=== PATIENT | female | born 1990 | race Caucasian/White ===

== ENCOUNTER 2021-09-03 23:03 | Emergency (ER) | payer OTHER ==
[~2021-09-03] VITALS: Ht 162.6 cm; Wt 76.1 kg
[2021-09-04] MEDS ORDERED: IBUPROFEN 600MG TABLET PO ONE (01:00)
[2021-09-04] MEDS ORDERED: NAPR-1176 MT (01:29)
[2021-09-04 02:24] VITALS: BP 130/76
== END 2021-09-04 02:27 | disposition home or self-care (01) ==
LOC: ER 23:03
DX: M25.562 Pain in left knee (principal); Z91.81 History of falling
CPT/HCPCS: 73562; 81025; 99283; L1830